=== PATIENT | female | born 1970 | race Caucasian/White ===

== ENCOUNTER → 2020-11-10 00:37 | Outpatient (CLI) | payer OTHER, SELFPAY | PROVIDERS: PCP Family Medicine; Visit Provider Internal Medicine Gastroenterology | DX: Z01.812 Encounter for preprocedural laboratory examination (principal); Z20.822 Contact with and (suspected) exposure to COVID-19 | CPT/HCPCS: C9803; U0003; U0005 ==

== ENCOUNTER 2020-11-12 08:00 | Outpatient (CLI) | payer OTHER, SELFPAY ==
[2020-11-12 13:12] LABS: EDCOVIDSCREEN Negative (Negative)
== END 2020-11-12 08:01 | disposition home or self-care (01) ==
LOC: ANHLAB 11-19 10:49
PROVIDERS: PCP Family Medicine; Visit Provider Internal Medicine Gastroenterology
DX: Z01.812 Encounter for preprocedural laboratory examination (principal); Z20.822 Contact with and (suspected) exposure to COVID-19
CPT/HCPCS: 36415; 87426; C9803

== ENCOUNTER 2020-11-13 01:20 | Day surgery (SDC) | payer OTHER, SELFPAY ==
[2020-11-05 09:47] VITALS: BMI 43.1
[2020-11-13 07:14] VITALS: BMI 43.2
[2020-11-13 07:38] VITALS: BP 132/77; PULSE 106; RESP 18; TEMP 36.4; O2SAT 99
[2020-11-13] MEDS: LACTATED RINGERS 1,000 ML 150 ML IV CONT (07:40)
--- NOTE | 2020-11-13 07:59 | P.PNAN_ITS ---
Anes - Initial Pre Proc Eval Procedure: Operation Date: 11/13/20 08:30 Proposed Procedures p Esophagogastroduodenoscopy - Nazario Nogueira MD Date/Time: 11/13/20 07:59 Surgeon: Nazario Nogueira MD Pre Op Diagnosis: dysphagia Patient Data Age: 49 Gender: F Height: 1.57 m Weight: 107.4 kg Last Vital Signs Temp 36.4 C 11/13/20 07:38 Pulse 106 H 11/13/20 07:38 Resp 18 11/13/20 07:38 BP 132/77 11/13/20 07:38 Pulse Ox 99 11/13/20 07:38 Allergies Allergy/AdvReac Type Severity Reaction Status Date / Time No Known Allergies Allergy Verified 11/13/20 07:11 Home Medications Medication Instructions Recorded Confirmed Type alprazolam 1 mg PO TID 11/05/20 11/13/20 History budesonide-formoterol [Symbicort] 2 puff INHALATION BID 11/05/20 11/13/20 History clotrimazole 1 applic TOPICAL BID 11/05/20 11/13/20 History cyclobenzaprine 10 mg PO TID PRN 11/05/20 11/13/20 History doxycycline hyclate 100 mg PO BID 11/05/20 11/13/20 History ergocalciferol (vitamin D2) 50,000 unit PO WEEKLY 11/05/20 11/13/20 History gabapentin 300 mg PO TID 11/05/20 11/13/20 History gabapentin 600 mg PO TID 11/05/20 11/13/20 History glimepiride 4 mg PO BID 11/05/20 11/13/20 History ipratropium-albuterol 3 ml INHALATION BID 11/05/20 11/13/20 History metformin 500 mg PO BID 11/05/20 11/13/20 History pantoprazole 40 mg PO DAILY 11/05/20 11/13/20 History sumatriptan succinate 100 mg PO PRN PRN 11/05/20 11/13/20 History tiotropium-olodaterol [Stiolto 2 puff INHALATION BID 11/05/20 11/13/20 History Respimat] tramadol 50 mg PO Q6H PRN 06/16/21 06/24/21 History zolpidem 5 mg PO HS 11/05/20 11/13/20 History Laboratory Tests 11/12/20 12:29 SARS-CoV-2 IgG/IgM Ag?Rapid Negative (Negative) Patient hx anesthesia problems: none Family hx anesthesia problems: none [facility] Past Medical History Medical History (Updated 11/13/20 @ 08:00 by Nolan Rodriguez MD) Chronic pain COPD (chronic obstructive pulmonary disease) Diabetes Morbid obesity Social History Social History Smoking packs per day: 1 Smoking cigarettes per day: 20.0 Years smoked: 20 Smoking pack-years: 20.00 Smoking status: Current every day smoker Tobacco type: cigarettes Additional smoking assessment comments: SMOKES 3 CIGS A DAY NOW Alcohol intake: never Substance use: never Substance use type: does not use Living arrangements: with family Spiritual care concerns: No Anes - Eval Final PreProcedure Day of Procedure 11/13/20 07:59 Patient weight: morbidly obese Heart: regular rate and rhythm Lungs: clear to auscultation Airway: Mallampati scale class II Neurological: alert and oriented Last oral intake: >/= 8 hours ASA classification: IV Emergent: no Anesthetic plan: proceed Anesthesia type and monitoring: general GIVS and standard monitoring Informed Consent: The patient's anesthetic plan and its attendant risks and benefits were discussed with the patient/family/POA. Questions were solicited and answers provided to the satisfaction of the patient/family/POA.
--- NOTE | 2020-11-13 08:28 | PM.HPGS ---
History of Present Illness History of Present Illness Consent: Risks, benefits, and alternatives have been discussed and questions answered. Patient agrees to proceed with procedure. Chief complaint: dysphagia Narrative: Christie Garcia is a 49 year old female who has had difficulty swallowing for the past few months. She states she has had acid reflux problems for 15 years, for which she takes pantoprazole. He recently she feels as though she chokes with things like pills, food, and even water getting caught in her throat. Rarely she will fill of something get caught in the substernal area, but most the time it seems that it does not get past her throat. She has not lost weight in the fact is gaining weight. Review of Systems Review of Systems: All systems reviewed & are unremarkable except as noted in HPI and below PMFSH Past Medical History Medical History Chronic pain COPD (chronic obstructive pulmonary disease) Diabetes Morbid obesity Social History Social History Smoking packs per day: 1 Smoking cigarettes per day: 20.0 Years smoked: 20 Smoking pack-years: 20.00 Smoking status: Current every day smoker Tobacco type: cigarettes Additional smoking assessment comments: SMOKES 3 CIGS A DAY NOW Alcohol intake: never Substance use: never Substance use type: does not use Living arrangements: with family Spiritual care concerns: No Meds Home Medications and Allergies Home Medications Medication Instructions Recorded Confirmed Type alprazolam 1 mg PO TID 11/05/20 11/13/20 History budesonide-formoterol [Symbicort] 2 puff INHALATION BID 11/05/20 11/13/20 History clotrimazole 1 applic TOPICAL BID 11/05/20 11/13/20 History cyclobenzaprine 10 mg PO TID PRN 11/05/20 11/13/20 History doxycycline hyclate 100 mg PO BID 11/05/20 11/13/20 History ergocalciferol (vitamin D2) 50,000 unit PO WEEKLY 11/05/20 11/13/20 History gabapentin 300 mg PO TID 11/05/20 11/13/20 History gabapentin 600 mg PO TID 11/05/20 11/13/20 History glimepiride 4 mg PO BID 11/05/20 11/13/20 History ipratropium-albuterol 3 ml INHALATION BID 11/05/20 11/13/20 History metformin 500 mg PO BID 11/05/20 11/13/20 History pantoprazole 40 mg PO DAILY 11/05/20 11/13/20 History sumatriptan succinate 100 mg PO PRN PRN 11/05/20 11/13/20 History tiotropium-olodaterol [Stiolto 2 puff INHALATION BID 11/05/20 11/13/20 History Respimat] tramadol 50 mg PO Q6H PRN 11/05/20 11/13/20 History zolpidem 5 mg PO HS 11/05/20 11/13/20 History Allergies Allergy/AdvReac Type Severity Reaction Status Date / Time No Known Allergies Allergy Verified 11/13/20 07:11 Vital Signs Vital Signs - 24 hr 11/13/20 07:38 Temperature 36.4 C Pulse Rate 106 H Respiratory Rate 18 Blood Pressure 132/77 Pulse Oximetry 99 Exam Resp: Auscultation: clear to auscultation bilaterally Cardio: Rate: regular rate Rhythm: regular rhythm GI: GI Palp: Yes Soft to palpation and No Tenderness to palpation present (GI) Assessment and Plan Assessment and plan (1) Dysphagia: Code(s): R13.10 - Dysphagia, unspecified Status: Acute Assessment and Plan: EGD with possible biopsy or dilatation or cautery.
[2020-11-13] MEDS: BENZOCAINE (*SP) 60 ML SPRAY CAN (HURRICAINE) 1 SPRAY MUCOUS MEM (08:46)
[2020-11-13 09:03] VITALS: BP 108/63; PULSE 98; RESP 22; O2SAT 95
[2020-11-13 09:13] VITALS: BP 117/73; PULSE 97; RESP 21; O2SAT 95
[2020-11-13 09:23] VITALS: BP 127/75; PULSE 97; RESP 18; O2SAT 96
[2020-11-13 09:29] VITALS: BP 124/68; PULSE 98; RESP 20; O2SAT 96
[2020-11-13 10:46] LABS: Glucose Point of Care 205 mg/dl (65-105)
== END 2020-11-13 09:53 | disposition home or self-care (01) ==
PROVIDERS: PCP Family Medicine; Visit Provider Internal Medicine Gastroenterology
PROC: 0DJ08ZZ Inspection of Upper Intestinal Tract, Via Natural or Artificial Opening Endoscopic (ICD-10-PCS; CPT 43235; principal; 2020-11-13 08:30)
DX: K22.70 Barrett's esophagus without dysplasia (principal); K21.00 Gastro-esophageal reflux disease with esophagitis, without bleeding; R13.10 Dysphagia, unspecified; Z79.51 Long term (current) use of inhaled steroids; Z79.84 Long term (current) use of oral hypoglycemic drugs; J44.9 Chronic obstructive pulmonary disease, unspecified; E11.9 Type 2 diabetes mellitus without complications; G89.29 Other chronic pain; E66.01 Morbid (severe) obesity due to excess calories; Z68.41 Body mass index [BMI] 40.0-44.9, adult; F17.210 Nicotine dependence, cigarettes, uncomplicated
CPT/HCPCS: 43239; 36415; 82948; 87426; 88305; 88313; C9803; J7120

== ENCOUNTER 2021-03-26 07:28 | Outpatient (CLI) | payer OTHER, SELFPAY ==
--- NOTE | ~2021-03-26 | CT_ITS ---
EXAMINATION: CT sinus wo con DATE: 03/26/2021 07:57 INDICATION: Chronic sinusitis TECHNIQUE: Computed tomography (CT) of the paranasal sinuses was performed without intravenous contra st. The dose-length product (DLP) was 294.13 mGy-cm. Iterative reconstruction was used. COMPARISON: 04/28/2012 FINDINGS: There is normal development and pneumatization of the paranasal sinuses. The frontal, sphen oid, ethmoid, and maxillary sinuses are clear. The bilateral ostiomeatal complexes are patent. Visual ized soft tissues are unremarkable. There are 4 mm of rightward deviation of the nasal septum. IMPRESSION: 1. Unremarkable paranasal sinuses. Reviewed, dictated and finalized at location B.
== END 2021-03-26 07:29 | disposition home or self-care (01) ==
PROVIDERS: PCP Family Medicine; Visit Provider Otolaryngology
DX: J32.9 Chronic sinusitis, unspecified (principal)
CPT/HCPCS: 70486

== ENCOUNTER 2021-03-27 13:34 | Outpatient (CLI) | payer OTHER, SELFPAY ==
--- NOTE | 2021-03-27 | ECHO_ITS ---
Patient Info Name: Christie Garcia Age: 50 years : 1970 Gender: Female Ht: 62 in Wt: 240 lbs BSA: 2.25 m2 HR: 77 bpm BP: 129 / 81 mmHg Technical Quality: Good Exam Date: 03/27/2021 2:07 PM Exam Location: [facility] Patient Status: Outpatient Admit Date: 03/27/2021 Staff Ordering Physician: Vin, Aida FALL Movement Therapist: Rashmi Singh RDCS Attending Provider: Vin, Aida FALL Exam Type: CA echo doppler color flow Study Info Indications R06.09 - Other forms of dyspnea Complete two-dimensional, color flow and Doppler transthoracic echocardiogram is performed. Summary 1. Complete two-dimensional, color flow and Doppler transthoracic echocardiogram is performed. 2. Left ventricular chamber dimension is normal. 3. Left ventricular systolic function is normal, estimated at 60-65%. 4. There is mildly increased left ventricular wall thickness. 5. The left ventricular diastolic function is grade I diastolic dysfunction. 6. E/e' 10 is mildly elevated. 7. Global longitudinal strain is abnormal at -14.9%. 8. No pulmonary hypertension, estimated pulmonary arterial systolic pressure is 13 mmHg. Left Ventricle E/e' 10 is mildly elevated. Global longitudinal strain is abnormal at -14.9%. Left ventricular chamber dimension is normal. Left ventricular systolic function is normal, estimated at 60-65%. There is mildly increased left ventricular wall thickness. The left ventricular diastolic function is grade I diastolic dysfunction. Right Ventricle Right ventricular chamber dimension is normal. Right ventricular systolic function is normal. Left Atria Left atrial chamber dimension is normal. Right Atria Right atrial chamber dimension is normal. Aortic Valve The aortic valve is trileaflet. There is no aortic valve stenosis. There is no aortic valve regurgitation. Pulmonic Valve There is no pulmonic regurgitation. Mitral Valve There is no mitral valve stenosis. There is no mitral valve regurgitation. Tricuspid Valve There is no tricuspid valve regurgitation. No pulmonary hypertension, estimated pulmonary arterial systolic pressure is 13 mmHg. Pericardium/Pleural There is no pericardial effusion. Inferior Vena Cava Normal inferior vena cava with >50% collapse upon inspiration consistent with normal right atrial pressure, 5 mmHg. Aorta The aortic root size at the sinus of Valsalva is normal. Left Ventricular Outflow Tract Name Value Normal LVOT 2D LVOT Diameter 1.9 cm LVOT Doppler LVOT Peak Gradient 8 mmHg LVOT Mean Gradient 4 mmHg LVOT VTI 23 cm LVOT VTI/AV VTI Ratio 0.9 LVOT Stroke Volume 65 ml LVOT CO 6.5 l/min LVOT CI 2.9 l/min/m2 Pulmonic Valve Name Value Normal
--- NOTE | 2021-03-30 10:03 | WPDPFTINT ---
PFT Procedure Performed PFT Procedure Performed Spirometry with Pre/Post Bronchodilator Plethysmography (Lung Vol) Flow Vol Loop PFT Interpretation Lung volumes were measured with the body plethysmography method. The diminished expiratory reserve volume is related to obesity. The remaining lung volumes are unremarkable. Spirometry showed diminished expiratory flow rates and a normal FEV1 to FVC ratio of 82%. Following administration of a bronchodilator there was significant increase in the expiratory flow rates. The diminished expiratory flow rates in the face of a normal FEV1 to FVC ratio of 82% and a normal total lung capacity is indicative of a nonspecific pattern. The significant response to bronchodilators may be due to underlying obstructive airway disease. Clinical correlation advised. The post bronchodilator flow volume loop is consistent with suboptimal effort. Impression: Nonspecific pattern. Significant response to bronchodilator may indicate underlying obstructive airway disease. Clinical correlation advised.
--- NOTE | 2021-03-30 10:08 | WPDSIXMINUTE ---
Six Minute Walk Procedure Procedure Performed Pulmonary Stress Test (6 min walk) Six Minute Walk This 6 minute walk test was carried out with the patient breathing ambient air. The pre walk oxyhemoglobin saturation was 94%. The pre walk perceived dyspnea was 4 on the Azeb scale. The patient walked only 76 m with no stops during testing. The patient's performance was limited by dyspnea and pain in right leg. During the walk the perceived dyspnea was again about 4 on the Azeb scale. During this limited testing the oxyhemoglobin saturation remained over 93%. Impression: No oxyhemoglobin desaturation during this limited testing.
== END 2021-03-27 13:35 | disposition home or self-care (01) ==
LOC: ANHCARD 13:44
PROVIDERS: PCP Family Medicine; Visit Provider Nurse Practitioner
DX: J44.9 Chronic obstructive pulmonary disease, unspecified (principal); R06.09 Other forms of dyspnea
CPT/HCPCS: 93306; 94060; 94618; 94726

== ENCOUNTER 2021-04-20 08:49 | Outpatient (CLI) | payer OTHER, SELFPAY ==
--- NOTE | ~2021-04-20 | CT_ITS ---
EXAMINATION: CT sinus wo con DATE: 04/20/2021 09:10 INDICATION: Chronic sinusitis TECHNIQUE: Computed tomography (CT) of the paranasal sinuses was performed without intravenous contra st. The dose-length product was 282.50 mGy-cm. Automated exposure control and iterative reconstructio n technique were employed. COMPARISON: CT dated 03/26/2021 FINDINGS: There is no significant mucosal thickening or air-fluid level. No mucoperiosteal reaction. There is rightward nasal septal deviation. Ostiomeatal units are patent bilaterally. Mastoids are pne umatized. IMPRESSION: 1. No significant sinus disease. Reviewed, dictated and finalized at location B. TERER JOURNEYMAN
== END 2021-04-20 08:50 | disposition home or self-care (01) ==
LOC: ANHIMG 08:53
PROVIDERS: PCP Family Medicine; Visit Provider Otolaryngology
DX: J32.9 Chronic sinusitis, unspecified (principal)
CPT/HCPCS: 70486

== ENCOUNTER 2021-06-05 08:04 | Outpatient (CLI) | payer OTHER, SELFPAY ==
--- NOTE | ~2021-06-05 | XR_ITS ---
EXAMINATION: XR barium swallow modified EXAM DATE: 06/05/2021 09:12 INDICATION: R13.10 - Dysphagia, unspecified . TECHNIQUE: Modified barium esophagram was performed by speech pathologist with radiologist Dr. Miah William present to administered fluoroscopy. Speech pathologist administered barium in varying consis tencies as per speech pathologist documentation. This was recorded on tape. There was total fluorosc opic time of 1.7 minutes. The DAP for this procedure was 1.7 Gycm2. A total of 2 images sent to PAC S from the exam. FINDINGS: Oral stage: Adequate function. Pharyngeal phase: Reduced laryngeal elevation. Laryngeal penetration: Demonstrated. Aspiration: Trace. Laryngeal sensitivity: Inconsistent, cued to cough. IMPRESSION: Please refer to speech pathologist findings and specific feeding recommendations. Reviewed, dictated and finalized at location A. ENGINE MECHANIC IMPRESSION: Please refer to speech pathologist findings and specific feeding r ecommendations.
--- NOTE | 2021-06-05 10:16 | STOPEVAL ---
MODIFIED BARIUM SWALLOW EVALUATION: Thank you for referring Christie Garcia to [facility].? Attending Provider: Nazario Nogueira MD Fax #: [phone] Outpatient Past Medical History Past Medical History Source of Past Medical History Patient Neurological History Hx Other Neurological Disorders Yes: pt reports having to see a neurologist for neuropathy Cardiovascular History Hx Cardiac Disorders No Significant History Respiratory History Hx Bronchitis Yes Hx Chronic Obstructive Pulmonary Disease Yes (COPD) Gastrointestinal History Hx Cholecystectomy Yes: 2016 Hx Gastroesophageal Reflux Disease Yes: on meds Hx Polyps Yes Genitourinary History Hx Genitourinary Disorders No Significant History Musculoskeletal History Hx Orthopedic Surgery Yes: CARPAL TUNNEL R-HAND Hx Other Musculoskeletal Disorders Yes: CARPAL TUNNEL L-HAND NO SURG. 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 Integumentary History Hx Shingles Yes: AT 6 YEARS OLD Hx Other Skin Disorders Yes: SKIN BREAKOUT ON BACK- UNSURE WHAT IT IS, TX WITH CREAM Reproductive History Hx Endometriosis Yes Psychosocial History Hx Anxiety Yes Hx Depression Yes Pain History Has Past Pain Affected Your Daily Life Yes: BILATERAL KNEES DOWN TO FEET-SWELL, HIPS AND BACK Effective Methods of Pain Control TRAMADOL- HAD EPIDURALS TO RELIEVE BACK PAIN PRIOR TO PANDEMIC Anesthesia History Hx Anesthesia Reactions No Significant History Other History Hx Other Surgeries Yes: CYST REMOVED FROM COCCYX Evaluation Information Problem Diagnosis dysphagia Onset 2 years Subjective Information I choke and I lose my voice; Query Text:As Reported By Patient/ sometimes when I choke it Family comes out my nose Modified Barium Swallow Evaluation Recent Swallowing History Reports Dysphagia Yes Duration of Dysphagia pt reports that choking occurs all the time History of Pneumonia No Reported Difficult Consistencies Unable to Identify Intake Method Prior to Swallow Oral Evaluation Diet Prior to Swallow Evaluation Regular, Level 7 Liquid Consistency Prior to Swallow Thin (0) Evaluation Orthodontic/Dental Appliances Full Dentures, Lower,Full
== END 2021-06-05 08:05 | disposition home or self-care (01) ==
LOC: ANHIMG 08:08
PROVIDERS: PCP Family Medicine; Visit Provider Internal Medicine Gastroenterology
DX: R13.10 Dysphagia, unspecified (principal)
CPT/HCPCS: 92611

== ENCOUNTER 2021-06-18 07:41 | Outpatient (CLI) | payer OTHER, SELFPAY ==
--- NOTE | 2021-06-18 22:22 | WPDMETH ---
Methacholine Procedure Perform Procedure Performed Methacholine Challenge Methacholine Challenge Methacholine Challenge: DOS: 06/18/2021 REQUESTING: EUFEMIA Talamantes REASON FOR TESTING: Asthma METHACHOLINE CHALLENGE This test was conducted per ATS guidelines. A previous study on 03/27/2021 showed spirometry with an FEV1 70% predicted, good response to bronchodilator 23% increased in FEV1. The patient was exposed to sequentially increasing doses of methacholine in the usual manner. Baseline measurement with saline Level 1 - 0.025 mg Level 2 - 0.25 mg Level 3 - 2.5 mg Level 4 - 10 mg Level 5 - 25 mg The test was completed through the entire sequence of dilutions without a significant drop in flows. A decrease of 20% in the FEV1 is a positive result, and she did not have a drop of 20%. Flows returned to normal after bronchodilator was administered. IMPRESSION: This is a negative methacholine challenge without a significant drop in flows after increasing doses of methacholine. The best use for a methacholine challenge is to rule out asthma. Clinical correlation is advised. Cammie Lopez MD
== END 2021-06-18 07:42 | disposition home or self-care (01) ==
LOC: ANHPFT 07:42
PROVIDERS: PCP Family Medicine; Visit Provider Nurse Practitioner
DX: J45.909 Unspecified asthma, uncomplicated (principal)
CPT/HCPCS: 94070; J7674

== ENCOUNTER 2021-09-28 10:42 | Inpatient (IN) | payer OTHER, SELFPAY ==
[2021-09-28] VITALS (22 sets, daily range): BP systolic 113–139; BP diastolic 63–77; PULSE 96–111; RESP 18–20; TEMP 36.8–37.1; O2SAT 95–100
--- NOTE | ~2021-09-28 | XR_ITS ---
XR chest 2V DATE: 09/28/2021 12:45 INDICATION: Wheezing, increased cough. Bilateral leg swelling for years. TECHNIQUE: AP and lateral views COMPARISON: 11/04/2016 PA and lateral chest FINDINGS: Normal heart size. No hilar or mediastinal enlargement. No pulmonary infiltrate or consolid ation, pleural effusion or pulmonary vascular congestion or pneumothorax. IMPRESSION: No active cardiopulmonary disease Reviewed, dictated and finalized at location B.
--- NOTE | ~2021-09-28 | US_ITS ---
EXAMINATION: US venous doppler LE RT DATE: 09/28/2021 13:04 INDICATION: Erythema and pain TECHNIQUE: Grayscale ultrasound images without and with compression and Doppler ultrasound images of the right lower extremity veins were obtained. COMPARISON: None. FINDINGS: The visualized portions of right common femoral vein, profunda (deep) femoral vein, femoral vein, pop liteal vein, peroneal trunk, posterior tibial veins, peroneal veins, gastrocnemius vein and greater s aphenous vein outflow are patent. IMPRESSION: 1. No deep venous thrombosis in the right lower limb. Reviewed, dictated and finalized at location A.
--- NOTE | 2021-09-28 12:14 | ECG_ITS ---
Measurements Intervals [place] Rate: 97 P: 48 GA: 123 QRS: 32 QRSD: 87 T: 43 QT: 379 QTc: 483 Interpretive Statements SINUS RHYTHM NONSPECIFIC ST & T-WAVE ABNORMALITY- DIFFUSE LEADS BASELINE ARTIFACT- I, III, AVR, AVL BORDERLINE ECG Electronically Signed On 09-28-2021 12:58:47 CDT by Wilbert Mack D.O.
[2021-09-28] MEDS: ALBUTEROL SULFATE NEB 2.5 MG/3 ML INH 1.25 MG INHALATION (12:24)
--- NOTE | 2021-09-28 12:27 | ED.LOWEXIN ---
HPI - Extremity Injury (Lower) General Chief Complaint: Extremity Injury, Lower Stated Complaint: bilat leg swelling Time Seen by Provider: 09/28/21 12:03 History of Present Illness HPI Narrative: Patient is a 50-year-old female with a history of diabetes, COPD, [place]unas's esophagus here for evaluation of right leg pain, swelling, and redness. Patient states she has been dealing with intermittent issues in her bilateral lower extremities for a while , but her right leg has become much more swollen, red and painful over the past several days. States she has been unable to walk to the pain. Denies break in skin integrity. Denies fevers, chills. Does note some intermittent chest pain over the past several years, has chronic cough and shortness of breath secondary to COPD. She still uses tobacco daily. Related Data Home Medications Medication Instructions Recorded Confirmed Stiolto Respimat 2 puff INHALATION BID 11/05/20 09/28/21 alprazolam 1 mg PO TID 11/05/20 09/28/21 budesonide-formoterol [Symbicort] 2 puff INHALATION BID 11/05/20 09/28/21 clotrimazole 1 applic TOPICAL BID 11/05/20 09/28/21 cyclobenzaprine 10 mg PO TID PRN 11/05/20 09/28/21 ergocalciferol (vitamin D2) 50,000 unit PO WEEKLY 11/05/20 09/28/21 gabapentin 300 mg PO TID 11/05/20 09/28/21 gabapentin 600 mg PO TID 11/05/20 09/28/21 ipratropium-albuterol 3 ml INHALATION BID 11/05/20 09/28/21 metformin 1,000 mg PO BID 11/05/20 09/28/21 pantoprazole 40 mg PO BID 11/05/20 09/28/21 sumatriptan succinate 100 mg PO PRN PRN 11/05/20 09/28/21 tramadol 50 mg PO Q6H PRN 11/05/20 09/28/21 zolpidem 5 mg PO HS PRN 11/05/20 09/28/21 benzonatate 200 mg capsule 200 mg PO TID PRN 02/10/21 09/28/21 sitagliptin 100 mg tablet 100 mg PO DAILY 02/10/21 09/28/21 cephalexin 500 mg PO Q6H 09/28/21 09/28/21 loratadine 10 mg PO DAILY 09/28/21 09/28/21 montelukast 10 mg PO DAILY 09/28/21 09/28/21 Allergies Allergy/AdvReac Type Severity Reaction Status Date / Time No Known Allergies Allergy Verified 09/28/21 17:17 Review of Systems Review of Systems: Gen: Denies fevers or chills Eyes: Denies eye pain or visual change ENT: Denies congestion Respiratory: Reports chronic shortness of breath and cough. CV: Denies chest pain or palpitations GI: Denies abdominal pain nausea, emesis or diarrhea denies burning, urgency, frequency or hematuria Musculoskeletal: Reports bilateral lower extremity swelling, right over left. Denies back pain or muscle pain Neuro: Denies numbness, tingling, weakness or focal weakness Skin: Denies rash Except as documented, all other systems reviewed and negative All systems reviewed & are unremarkable except as noted in HPI and below PMFSH Past Medical History Medical History Chronic pain COPD (chronic obstructive pulmonary disease) Diabetes Morbid obesity Social History Social History Smoking packs per day: 1 Smoking cigarettes per day: 20.0 Years smoked: 20 Smoking pack-years: 20.00 Smoking status: Current every day smoker Tobacco type: cigarettes Additional smoking assessment comments: SMOKES 3 CIGS A DAY NOW Alcohol intake: never Substance use: never Substance use type: does not use Spiritual care concerns: No Exam Narrative: APPEARANCE: Chronically ill appearing Head: normocephalic and atraumatic. EYES: PERRLA/EOMI, conjunctivae clear NOSE: No nasal drainage EARS: External ear normal in appearance THROAT: Oropharynx is clear. Mucous membranes are moist. NECK: Supple. No adenopathy, no masses. RESPIRATORY: Diffuse expiratory wheezes throughout lung pearce. Airway patent, respirations nonlabored. CARDIOVASCULAR: Doppler signals heard on DP and PT pulses bilaterally. Regular rate and rhythm without murmurs, rubs, or gallops. ABDOMINAL: Normoactive bowel sounds. Soft, nontender, nondistended. No rebound tenderness o
[2021-09-28 12:35] LABS: Basophils Percent Auto 0.2 % (0.2-1.2); Eosinophils Percent Auto 0.8 % (0-4.4); Hematocrit 33.3 % (37.0-47.0); Hemoglobin 10.9 g/dL (12.0-15.0); Immature Granulocyte Absolute 0.02 K/mm3 (0.00-0.031); Immature Granulocyte Percent A 0.4 % (0-0.5); Lymphocytes Absolute Auto 2.11 K/mm3 (0.9-3.2); Mean Corpuscular HGB Conc 32.7 g/dl (32-36); Mean Corpuscular Hemoglobin 32.7 pg (26-34); Monocytes Absolute Auto 0.3 K/mm3 (0.1-0.6); Monocytes Percent Auto 7.1 % (2.6-8.5); Neutrophils Absolute Auto 2.3 K/mm3 (1.3-6.7); Neutrophils Percent Auto 47.5 % (45.5-73.1); Platelet Count Result 130 k/mm3 (150-375); Red Blood Count 3.33 M/mm3 (4.2-5.4); Red Cell Distribution Width 14.8 % (11.5-14.5); White Blood Count 4.8 K/mm3 (4.5-10.0)
[2021-09-28 12:45] LABS: Alanine Aminotransferase 27 U/L (6-35); Albumin Level 2.8 g/dL (3.5-5.1); Alkaline Phosphatase 83 U/L (38-126); Anion Gap 7 mmol/L (8-16); Aspartate Amino Transferase 62 U/L (14-36); Bilirubin,Total 1.5 mg/dL (0.2-1.3); Blood Urea Nitrogen 5 mg/dL (7-17); Calcium 7.4 mg/dL (8.4-10.2); Carbon Dioxide 24 mmol/L (22-30); Chloride 106 mmol/L (98-107); Estimated CRCL calculation 128 ml/min; Estimated Glomerular Filt Rate > 60; Glucose 86 mg/dL (65-110); Potassium 2.9 mmol/L (3.4-5.0); Sodium 137 mmol/L (137-145)
[2021-09-28 12:57] LABS: NT Pro B Type Natriuretic Pept 140 pg/mL (5-100); Troponin I < 0.012 ng/mL (0.000-0.034)
[2021-09-28 15:30] LABS: Lactic Acid Reflex 2.7 mmol/L (0.7-2.0)
--- NOTE | 2021-09-28 17:10 | ADMGEN ---
This patient, Christie Garcia, was admitted to Medical Room 349-01. Patient/family oriented to hospital policies and general routines including ID bracelet, bed and alarms, visiting hours, pain management, procedures, bathroom and other care routines, personal items, smoking policy, room service/diet, and visiting hours. Information on how to activate the Rapid Response Team has been discussed. Patient/Family are encouraged to report perceived risks to care and to ask questions if they do not understand what they are told or what they should do.
[2021-09-28 17:17] LABS: Glucose Point of Care 100 mg/dl (65-105)
[2021-09-28 18:18] LABS: Reflex Lactic Acid Yes or No Add Lactic
[2021-09-28] MEDS: POTASSIUM CHLORIDE 20 MEQ TABLET 40 MEQ PO (18:47)
[2021-09-28 18:57] LABS: Lactic Acid 2.9 mmol/L (0.7-2.0)
--- NOTE | 2021-09-28 20:49 | PM.IMHP ---
H&P: HPI History of Present Illness Date/Time: Patient was placed observation status for expected length of stay less than 23 hours for management, will plan to re-evaluate tomorrow for improvement. 09/28/21 20:49 Chief Complaint: Lower extremity pain and swelling Narrative: Ms. Garcia is a 1-year-old female who presented to the emergency room with complaints of increasing erythema, swelling, and pain to her right lower extremity. Patient states that she noticed redness to her right foot approximately 2 weeks ago and has progressively gotten worse. Patient states that she was placed on antibiotics 1 week ago for some pustules on her back and she finished a full 7 day course. Patient states she was taking Keflex 500 mg since every 6 hours. Patient denies any fever or chills at home. Patient states that she has been monitoring her blood glucose level at home and has been running close to 100. Patient states she did recently have adjustment of her medications. Patient denies any chest pain, shortness a breath, lightheadedness, dizziness, syncopal, or near syncopal episodes. Patient states she had been taking [id number] medication for the pain in her right lower extremity, but last night it was quite painful and she did not sleep very well so decided to come to the hospital. Patient states she has had an episode of cellulitis to her lower extremities in the past and has been treated as an outpatient. Patient states he has a known history of diabetes mellitus, hypertension, and COPD. Patient states she is cutting back on cigarette smoking and she is down to 1 cigarette a day. Review of Systems Review of Systems: A 12 point review of systems was completed patient all pertinent positive and negative per HPI the remainder are unremarkable. FOR[facility]LY [facility] Past Medical History Medical History (Updated 09/28/21 @ 20:55 by Marianne Guzman APRN) Chronic pain COPD (chronic obstructive pulmonary disease) Diabetes Hypertension Morbid obesity Social History Social History Smoking packs per day: 1 Smoking cigarettes per day: 20.0 Years smoked: 20 Smoking pack-years: 20.00 Smoking status: Current every day smoker Tobacco type: cigarettes Additional smoking assessment comments: SMOKES 3 CIGS A DAY NOW Alcohol intake: never Substance use: never Substance use type: does not use Spiritual care concerns: No Meds Home Medications and Allergies Home Medications Medication Instructions Recorded Confirmed Type Stiolto Respimat 2 puff INHALATION BID 11/05/20 09/28/21 History alprazolam 1 mg PO TID 11/05/20 09/28/21 History budesonide-formoterol [Symbicort] 2 puff INHALATION BID 11/05/20 09/28/21 History clotrimazole 1 applic TOPICAL BID 11/05/20 09/28/21 History cyclobenzaprine 10 mg PO TID PRN 11/05/20 09/28/21 History ergocalciferol (vitamin D2) 50,000 unit PO WEEKLY 11/05/20 09/28/21 History gabapentin 300 mg PO TID 11/05/20 09/28/21 History gabapentin 600 mg PO TID 11/05/20 09/28/21 History ipratropium-albuterol 3 ml INHALATION BID 11/05/20 09/28/21 History metformin 1,000 mg PO BID 11/05/20 09/28/21 History pantoprazole 40 mg PO BID 11/05/20 09/28/21 History sumatriptan succinate 100 mg PO PRN PRN 11/05/20 09/28/21 History tramadol 50 mg PO Q6H PRN 11/05/20 09/28/21 History zolpidem 5 mg PO HS PRN 11/05/20 09/28/21 History benzonatate 200 mg capsule 200 mg PO TID PRN 02/10/21 09/28/21 History sitagliptin 100 mg tablet 100 mg PO DAILY 02/10/21 09/28/21 History cephalexin 500 mg PO Q6H 09/28/21 09/28/21 History loratadine 10 mg PO DAILY 09/28/21 09/28/21 History montelukast 10 mg PO DAILY 09/28/21 09/28/21 History Allergies Allergy/AdvReac Type Severity Reaction Status Date / Time No Known Allergies Allergy Verified 09/28/21 17:17 Vital Signs Vital Signs - 24 hr 09/28/21 10:46 09/28/21 12:00 09/28/21 12:24 Temperature 36.8 C Pulse Rate 111 H 98 Respi
[2021-09-28 21:50] LABS: Glucose Point of Care 127 mg/dl (65-105)
[2021-09-29] VITALS (8 sets, daily range): BP systolic 111–137; BP diastolic 63–79; PULSE 84–116; RESP 12–18; TEMP 36.3–37.1; O2SAT 94–100
[2021-09-29 06:29] LABS: Basophils Percent Auto 0.3 % (0.2-1.2); Eosinophils Percent Auto 0.6 % (0-4.4); Immature Granulocyte Absolute 0.01 K/mm3 (0.00-0.031); Immature Granulocyte Percent A 0.3 % (0-0.5); Lymphocytes Absolute Auto 1.51 K/mm3 (0.9-3.2); Mean Corpuscular HGB Conc 32.3 g/dl (32-36); Mean Corpuscular Hemoglobin 32.5 pg (26-34); Mean Corpuscular Volume 100.6 fl (80-100); Mean Platelet Volume 8.6 fl (7.4-10.4); Monocytes Absolute Auto 0.2 K/mm3 (0.1-0.6); Monocytes Percent Auto 6.7 % (2.6-8.5); Neutrophils Absolute Auto 1.7 K/mm3 (1.3-6.7); Neutrophils Percent Auto 48.1 % (45.5-73.1); Platelet Count Result 114 k/mm3 (150-375); Red Blood Count 3.08 M/mm3 (4.2-5.4); Red Cell Distribution Width 14.9 % (11.5-14.5); White Blood Count 3.4 K/mm3 (4.5-10.0)
[2021-09-29 06:50] LABS: Anion Gap 7 mmol/L (8-16); Blood Urea Nitrogen 5 mg/dL (7-17); Calcium 7.2 mg/dL (8.4-10.2); Carbon Dioxide 24 mmol/L (22-30); Chloride 105 mmol/L (98-107); Estimated CRCL calculation 128 ml/min; Estimated Glomerular Filt Rate > 60; Glucose 128 mg/dL (65-110); Magnesium 1.5 mg/dL (1.6-2.3); Potassium 3.3 mmol/L (3.4-5.0); Sodium 136 mmol/L (137-145)
[2021-09-29 08:01] LABS: Glucose Point of Care 112 mg/dl (65-105)
[2021-09-29] MEDS: ALPRAZolam (*CRX) 0.5 MG TABLET 1 MG PO ×3 (08:09→18:16)
[2021-09-29] MEDS: MONTELUKAST SODIUM 10 MG TABLET PO (08:09)
[2021-09-29] MEDS: ENOXAPARIN 40 MG/0.4 ML SYRINGE SUB-Q (08:10)
[2021-09-29] MEDS: LORATADINE 10 MG TABLET PO (08:10)
[2021-09-29] MEDS: GABAPENTIN 300 MG CAPSULE 900 MG PO ×3 (08:10→18:16)
[2021-09-29] MEDS: PANTOPRAZOLE 40 MG TABLET PO ×2 (08:10→18:17)
[2021-09-29] MEDS: UMECLIDINIUM/VILANTEROL 62.5-25 MCG ELLIPTA 1 PUFF INHALATION (08:38)
[2021-09-29] MEDS: IPRATROPIUM BR 0.02% INH SOLN 0.5 MG/2.5 ML VIAL INHALATION ×2 (08:48→20:18)
[2021-09-29] MEDS: ALBUTEROL SULFATE NEB 2.5 MG/3 ML INH INHALATION ×2 (08:49→20:18)
[2021-09-29 11:48] LABS: Glucose Point of Care 198 mg/dl (65-105)
[2021-09-29] MEDS: traMADol HCL (*CRX) 50 MG TABLET PO ×2 (13:01→21:13)
--- NOTE | 2021-09-29 13:43 | PM.IMPN ---
Progress Note: A&P Assessment and Plan (1) Cellulitis: Qualifiers: Laterality: right Site of cellulitis: extremity Site of cellulitis of extremity: lower extremity Qualified Code(s): L03.115 - Cellulitis of right lower limb Code(s): L03.90 - Cellulitis, unspecified Status: Acute Assessment and Plan: Continue iv vancomycin add lomotrin/ lamisil for athletes foot (2) Diabetes: Code(s): E11.9 - Type 2 diabetes mellitus without complications Status: Inactive Assessment and Plan: AccuCheck, SSI. (3) Hypertension: Code(s): I10 - Essential (primary) hypertension Status: Acute Assessment and Plan: continue to monitor Bps Subjective Date/time seen: 09/29/21 13:43 Review of Systems Review of Systems: All systems reviewed & are unremarkable except as noted in HPI and below Exam Narrative: Constitutional: Patient is well-nourished in no acute distress. Lungs: Patient has expiratory wheeze noted. Cardiovascular: Apical pulse is regular rate and rhythm. S1-S2 noted, no S3 or S4 noted. No gallops, murmurs, or rubs noted. Abdomen: Soft, round, and nontender. No palpable masses. Extremities: Patient does have edema to right lower extremity, both feet with Athletes foot. Psychiatric: Cooperative, appropriate mood, and affect Objective Data Vital Signs Vital Signs: Vital Signs - 24 hr 09/28/21 13:45 09/28/21 14:34 09/28/21 15:04 Temperature Pulse Rate 103 H 103 H 102 H Respiratory Rate Blood Pressure Pulse Oximetry 96 95 09/28/21 15:15 09/28/21 15:33 09/28/21 15:45 Temperature Pulse Rate 99 101 H 103 H Respiratory Rate Blood Pressure Pulse Oximetry 09/28/21 16:00 09/28/21 16:15 09/28/21 17:35 Temperature 37.0 C Pulse Rate 103 H 102 H 107 H Respiratory Rate 20 Blood Pressure 139/74 Pulse Oximetry 100 09/28/21 21:38 09/28/21 21:41 09/29/21 05:39 Temperature 37.1 C 37.1 C Pulse Rate 106 H 105 H Respiratory Rate 18 18 Blood Pressure 138/75 111/63 Pulse Oximetry 98 94 09/29/21 08:48 09/29/21 09:02 Temperature Pulse Rate 84 86 Respiratory Rate 12 12 Blood Pressure Pulse Oximetry Intake/Output Intake/Output: Intake & Output 09/26/21 09/27/21 09/28/21 09/29/21 23:59 23:59 23:59 23:59 Intake Total 550 1080 Output Total 600 Balance 550 480 Meds/Results Medications: Active Medications Generic Name Dose Route Start Last Admin Trade Name Freq PRN Reason Stop Dose Admin Albuterol 2.5 mg 09/29/21 08:00 09/29/21 08:49 Albuterol Sulfate Neb 2.5 Mg/3 Ml Inh INHALATION 2.5 mg Q12HRT MATI Administration Alprazolam 1 mg 09/29/21 09:00 09/29/21 12:59 Alprazolam (*Crx) 0.5 Mg Tablet PO 1 mg TID MATI Administration Benzonatate 200 mg 09/28/21 20:46 Benzonatate 100 Mg Capsule PO TID PRN Cough Cyclobenzaprine HCl 10 mg 09/28/21 20:35 Cyclobenzaprine Hcl 10 Mg Tablet PO TID PRN Spasms Dextrose 12.5 gm 09/28/21 17:22 Dextrose 50% 25 Gm/50 Ml Syringe IV PUSH PRN PRN Hypoglycemia Protocol Enoxaparin Sodium 40 mg 09/29/21 09:00 09/29/21 08:10 Enoxaparin 40 Mg/0.4 Ml Syringe SUB-Q 40 mg DAILY MATI Administration Ergocalciferol 50,000 unit 10/05/21 09:00 Ergocalciferol 50,000 Unit Capsule PO Mo@0900 MATI Gabapentin 900 mg 09/29/21 09:00 09/29/21 12:59 Gabapentin 300 Mg Capsule PO 900 mg TID MATI Administration Glucagon 1 mg 09/28/21 17:22 Glucagon For Inj 1 Mg Vial IM PRN PRN Hypoglycemia Protocol Glucose 15 gm 09/28/21 17:22 Glucose Oral Gel 15 Gm Of Glucse In 37.5 Gm Tube PO PRN PRN Hypoglycemia Protocol Dextrose 1,000 mls @ 100 mls/hr 09/28/21 17:22 Dextrose 5% 1,000 Ml IVPB PRN PRN Hypoglycemia Protocol Cefepime HCl 2 gm in 50 mls @ 100 mls/hr 09/28/21 18:00 09/29/21 06:45 Maxipime 2 Gm
[2021-09-29] MEDS: BENZONATATE 100 MG CAPSULE 200 MG PO (15:21)
[2021-09-29 16:43] LABS: Glucose Point of Care 132 mg/dl (65-105)
[2021-09-29] MEDS: FLUTICASONE/SALMETEROL 45-21 MCG INHALER 1 PUFF 2 PUFF INHALATION (20:18)
[2021-09-29 20:41] LABS: Glucose Point of Care 150 mg/dl (65-105)
[2021-09-29] MEDS: NYSTATIN OINTMENT 15 GM TUBE 1 APPLIC TOPICAL (21:01)
[2021-09-29] MEDS: CYCLOBENZAPRINE HCL 10 MG TABLET PO (21:13)
[2021-09-29] MEDS: ZOLPIDEM TARTRATE (*CRX) 5 MG TABLET PO (21:13)
[2021-09-30] VITALS (8 sets, daily range): BP systolic 118–128; BP diastolic 54–93; PULSE 90–114; RESP 16–23; TEMP 36–37; O2SAT 95–100
[2021-09-30 02:55] LABS: Vancomycin Trough 6.6 ug/mL (10.0-20.0)
[2021-09-30] MEDS: traMADol HCL (*CRX) 50 MG TABLET PO ×3 (06:06→21:29)
[2021-09-30 07:43] LABS: Glucose Point of Care 130 mg/dl (65-105)
[2021-09-30] MEDS: ENOXAPARIN 40 MG/0.4 ML SYRINGE SUB-Q (08:32)
[2021-09-30] MEDS: ALPRAZolam (*CRX) 0.5 MG TABLET 1 MG PO ×3 (08:35→17:18)
[2021-09-30] MEDS: PANTOPRAZOLE 40 MG TABLET PO ×2 (08:36→18:13)
[2021-09-30] MEDS: MONTELUKAST SODIUM 10 MG TABLET PO (08:36)
[2021-09-30] MEDS: NYSTATIN OINTMENT 15 GM TUBE 1 APPLIC TOPICAL ×2 (08:36→20:57)
[2021-09-30] MEDS: GABAPENTIN 300 MG CAPSULE 900 MG PO ×3 (08:36→17:13)
[2021-09-30] MEDS: LORATADINE 10 MG TABLET PO (08:36)
[2021-09-30] MEDS: BENZONATATE 100 MG CAPSULE 200 MG PO ×2 (08:37→15:24)
[2021-09-30] MEDS: FLUTICASONE/SALMETEROL 45-21 MCG INHALER 1 PUFF 2 PUFF INHALATION ×2 (09:00→21:51)
[2021-09-30] MEDS: UMECLIDINIUM/VILANTEROL 62.5-25 MCG ELLIPTA 1 PUFF INHALATION (09:00)
[2021-09-30] MEDS: IPRATROPIUM BR 0.02% INH SOLN 0.5 MG/2.5 ML VIAL INHALATION ×2 (09:00→21:50)
[2021-09-30] MEDS: ALBUTEROL SULFATE NEB 2.5 MG/3 ML INH INHALATION ×2 (09:18→21:50)
[2021-09-30 11:50] LABS: Glucose Point of Care 140 mg/dl (65-105)
--- NOTE | 2021-09-30 12:26 | PM.IMPN ---
Progress Note: A&P Assessment and Plan (1) Cellulitis: Qualifiers: Laterality: right Site of cellulitis: extremity Site of cellulitis of extremity: lower extremity Qualified Code(s): L03.115 - Cellulitis of right lower limb Code(s): L03.90 - Cellulitis, unspecified Status: Acute Assessment and Plan: Continue iv vancomycin and cefepime day 2 add nystatin cream for athletes foot continue Iv abx for 1-2 more days (2) Diabetes: Code(s): E11.9 - Type 2 diabetes mellitus without complications Status: Inactive Assessment and Plan: AccuCheck, SSI. Sugars at 128 (3) Hypertension: Code(s): I10 - Essential (primary) hypertension Status: Acute Assessment and Plan: continue to monitor Bps currently 121/54 Subjective Date/time seen: 09/30/21 12:26 Interval history: Ms. Garcia is a 50-year-old female who presented to the emergency room with complaints of increasing erythema, swelling, and pain to her right lower extremity. Pt admitted with cellulitis of her r lower ext Review of Systems Review of Systems: All systems reviewed & are unremarkable except as noted in HPI and below Exam Narrative: Constitutional: Patient is well-nourished in no acute distress. Lungs: clear lungs Cardiovascular: Apical pulse is regular rate and rhythm. S1-S2 noted, no S3 or S4 noted. No gallops, murmurs, or rubs noted. Abdomen: Soft, round, and nontender. No palpable masses. Extremities: Patient erythema of lower half of right lower extremity, both feet with Athletes foot. Psychiatric: Cooperative, appropriate mood, and affect Objective Data Vital Signs Vital Signs: Vital Signs - 24 hr 09/29/21 15:18 09/29/21 20:18 09/29/21 20:21 Temperature 36.7 C Pulse Rate 108 H 103 H 103 H Respiratory Rate 18 18 Blood Pressure 124/65 Pulse Oximetry 100 99 09/29/21 20:31 09/29/21 22:00 09/30/21 06:00 Temperature 36.3 C L 36.0 C L Pulse Rate 92 116 H 114 H Respiratory Rate 18 18 21 H Blood Pressure 137/79 121/54 L Pulse Oximetry 99 95 09/30/21 09:00 09/30/21 09:07 Temperature Pulse Rate 90 Respiratory Rate 18 Blood Pressure Pulse Oximetry 99 Intake/Output Intake/Output: Intake & Output 09/27/21 09/28/21 09/29/21 09/30/21 23:59 23:59 23:59 23:59 Intake Total 550 2110 670 Output Total 1550 1000 Balance 550 560 -330 Meds/Results Medications: Active Medications Generic Name Dose Route Start Last Admin Trade Name Freq PRN Reason Stop Dose Admin Albuterol 2.5 mg 09/29/21 08:00 09/30/21 09:18 Albuterol Sulfate Neb 2.5 Mg/3 Ml Inh INHALATION 2.5 mg Q12HRT MATI Administration Alprazolam 1 mg 09/29/21 09:00 09/30/21 08:35 Alprazolam (*Crx) 0.5 Mg Tablet PO 1 mg TID MATI Administration Benzonatate 200 mg 09/28/21 20:46 09/30/21 08:37 Benzonatate 100 Mg Capsule PO 200 mg TID PRN Administration Cough Cyclobenzaprine HCl 10 mg 09/28/21 20:35 09/29/21 21:13 Cyclobenzaprine Hcl 10 Mg Tablet PO 10 mg TID PRN Administration Spasms Dextrose 12.5 gm 09/28/21 17:22 Dextrose 50% 25 Gm/50 Ml Syringe IV PUSH PRN PRN Hypoglycemia Protocol Enoxaparin Sodium 40 mg 09/29/21 09:00 09/30/21 08:32 Enoxaparin 40 Mg/0.4 Ml Syringe SUB-Q 40 mg DAILY MATI Administration Ergocalciferol 50,000 unit 10/05/21 09:00 Ergocalciferol 50,000 Unit Capsule PO Mo@0900 MATI Gabapentin 900 mg 09/29/21 09:00 09/30/21 08:36 Gabapentin 300 Mg Capsule PO 900 mg TID MATI Administration Glucagon 1 mg 09/28/21 17:22 Glucagon For Inj 1 Mg Vial IM PRN PRN Hypoglycemia Protocol Glucose 15 gm 09/28/21 17:22 Glucose Oral Gel 15 Gm Of Glucse In 37.5 Gm Tube PO PRN PRN Hypoglycemia Protocol Dextrose 1,000 mls @ 100 mls/hr 09/28/21 17:22 Dextrose 5% 1,000 Ml IVPB PRN PRN Hypoglycemia Protocol Cefepime HC
[2021-09-30 17:03] LABS: Glucose Point of Care 137 mg/dl (65-105)
[2021-09-30] MEDS: POTASSIUM CHLORIDE 20 MEQ PACKET (FOR LIQUID) PO (17:14)
[2021-09-30] MEDS: CYCLOBENZAPRINE HCL 10 MG TABLET PO (21:29)
[2021-09-30] MEDS: ZOLPIDEM TARTRATE (*CRX) 5 MG TABLET PO (21:29)
[2021-09-30 22:04] LABS: Glucose Point of Care 165 mg/dl (65-105)
[2021-10-01] VITALS (10 sets, daily range): BP systolic 127–134; BP diastolic 65–73; PULSE 91–113; RESP 18–26; TEMP 36.9–37.1; O2SAT 93–100
[2021-10-01 05:58] LABS: Alanine Aminotransferase 26 U/L (6-35); Albumin Level 2.4 g/dL (3.5-5.1); Alkaline Phosphatase 73 U/L (38-126); Anion Gap 2 mmol/L (8-16); Aspartate Amino Transferase 55 U/L (14-36); Bilirubin,Total 1.1 mg/dL (0.2-1.3); Blood Urea Nitrogen 3 mg/dL (7-17); Calcium 7.7 mg/dL (8.4-10.2); Carbon Dioxide 28 mmol/L (22-30); Chloride 105 mmol/L (98-107); Estimated CRCL calculation 128 ml/min; Estimated Glomerular Filt Rate > 60; Glucose 156 mg/dL (65-110); Magnesium 1.5 mg/dL (1.6-2.3); Potassium 3.5 mmol/L (3.4-5.0); Sodium 135 mmol/L (137-145)
[2021-10-01 07:26] LABS: Glucose Point of Care 136 mg/dl (65-105)
[2021-10-01] MEDS: GABAPENTIN 300 MG CAPSULE 900 MG PO ×3 (08:34→18:07)
[2021-10-01] MEDS: PANTOPRAZOLE 40 MG TABLET PO ×2 (08:34→18:09)
[2021-10-01] MEDS: ALPRAZolam (*CRX) 0.5 MG TABLET 1 MG PO ×3 (08:34→18:14)
[2021-10-01] MEDS: MAGNESIUM OXIDE 400 MG TABLET PO (08:34)
[2021-10-01] MEDS: NYSTATIN OINTMENT 15 GM TUBE 1 APPLIC TOPICAL ×2 (08:35→21:20)
[2021-10-01] MEDS: MONTELUKAST SODIUM 10 MG TABLET PO (08:35)
[2021-10-01] MEDS: LORATADINE 10 MG TABLET PO (08:35)
[2021-10-01] MEDS: ENOXAPARIN 40 MG/0.4 ML SYRINGE SUB-Q (08:35)
[2021-10-01] MEDS: FLUTICASONE/SALMETEROL 45-21 MCG INHALER 1 PUFF 2 PUFF INHALATION ×3 (09:30→20:03)
[2021-10-01] MEDS: ALBUTEROL SULFATE NEB 2.5 MG/3 ML INH INHALATION ×2 (09:30→20:03)
[2021-10-01] MEDS: IPRATROPIUM BR 0.02% INH SOLN 0.5 MG/2.5 ML VIAL INHALATION ×2 (09:30→20:03)
[2021-10-01] MEDS: UMECLIDINIUM/VILANTEROL 62.5-25 MCG ELLIPTA 1 PUFF INHALATION (09:31)
[2021-10-01] MEDS: POTASSIUM CHLORIDE 20 MEQ PACKET (FOR LIQUID) PO ×2 (10:02→18:09)
[2021-10-01 11:32] LABS: Glucose Point of Care 145 mg/dl (65-105)
[2021-10-01] MEDS: traMADol HCL (*CRX) 50 MG TABLET PO ×2 (12:56→21:25)
[2021-10-01 14:17] LABS: Hemoglobin A1C 6.7 % (<5.7)
--- NOTE | 2021-10-01 16:37 | PM.IMPN ---
Progress Note: A&P Assessment and Plan (1) Cellulitis: Qualifiers: Laterality: right Site of cellulitis: extremity Site of cellulitis of extremity: lower extremity Qualified Code(s): L03.115 - Cellulitis of right lower limb Code(s): L03.90 - Cellulitis, unspecified Status: Acute Assessment and Plan: Patient completed 3 days of vancomycin cefepime, will switch to doxycycline and Keflex and anticipate discharge home tomorrow (2) Diabetes: Code(s): E11.9 - Type 2 diabetes mellitus without complications Status: Inactive Assessment and Plan: Accu-Cheks plus sliding scale insulin, A1c 6.7, point of care glucose ranging from 145-160 (3) Hypertension: Code(s): I10 - Essential (primary) hypertension Status: Acute Assessment and Plan: Controlled, blood pressure ranging from 120-134 over 54-71 (4) Tinea pedis of both feet: Code(s): B35.3 - Tinea pedis Status: Acute Assessment and Plan: Fairly severe, refer to podiatry of discharge, continue nystatin while in-house (5) Degenerative arthritis of knee, bilateral: Code(s): M17.0 - Bilateral primary osteoarthritis of knee Status: Acute Assessment and Plan: Follow-up outpatient with primary care physician and Orthopedic surgery Subjective Date/time seen: 10/01/21 16:37 Interval history: Ms. Garcia is a 50-year-old female who presented to the emergency room with complaints of increasing erythema, swelling, and pain to her right lower extremity, thought to be cellulitis, started on vancomycin cefepime September 28. No events noted overnight, patient states her symptoms are much improved. No fevers or chills. No chest pain or shortness of breath. Review of Systems Review of Systems: All systems reviewed & are unremarkable except as noted in HPI and below Exam Const: General: no acute distress HENMT: Mouth: Yes moist mucous membranes Eyes: General: appearance normal, both eyes and all related structures Neck: Neck: no JVD Resp: Auscultation: clear to auscultation bilaterally Cardio: Rate: regular rate Rhythm: regular rhythm GI: Inspection: non-distended GI Palp: Yes Soft to palpation and No Tenderness to palpation present (GI) Skin: Other: Erythema significantly improved, no warmth or tenderness noted Psych: Mental Status: mental status grossly normal Objective Data Vital Signs Vital Signs: Vital Signs - 24 hr 09/30/21 21:50 09/30/21 21:53 09/30/21 22:00 Temperature 98.6 F Pulse Rate 98 106 H Respiratory Rate 23 H 20 Blood Pressure 128/60 Pulse Oximetry 97 100 09/30/21 22:01 10/01/21 06:00 10/01/21 09:25 Temperature 98.6 F Pulse Rate 102 H 110 H 93 Respiratory Rate 20 18 20 Blood Pressure 127/73 Pulse Oximetry 100 10/01/21 09:31 10/01/21 09:32 10/01/21 14:00 Temperature 98.8 F Pulse Rate 91 109 H Respiratory Rate 20 18 Blood Pressure 134/71 Pulse Oximetry 97 97 Intake/Output Intake/Output: Intake & Output 09/28/21 09/29/21 09/30/21 10/01/21 23:59 23:59 23:59 23:59 Intake Total 550 2110 1700 1930 Output Total 1550 1000 Balance 550 247 572 3807 Meds/Results Medications: Active Medications Generic Name Dose Route Start Last Admin Trade Name Freq PRN Reason Stop Dose Admin Albuterol 2.5 mg 09/29/21 08:00 10/01/21 09:30 Albuterol Sulfate Neb 2.5 Mg/3 Ml Inh INHALATION 2.5 mg Q12HRT MATI Administration Alprazolam 1 mg 09/29/21 09:00 10/01/21 12:56 Alprazolam (*Crx) 0.5 Mg Tablet PO 1 mg TID MATI Administration Benzonatate 200 mg 09/28/21 20:46 09/30/21 15:24 Benzonatate 100 Mg Capsule PO 200 mg TID PRN Administration Cough Cephalexin HCl 500 mg 10/01/21 21:00 Cephalexin 500 Mg Capsule PO Q12HR MATI Cyclobenzaprine HCl 10 mg 09/28/21 20:35 09/30/21 21:29 Cyclobenzaprine Hcl 10 Mg Tablet PO 10 mg TID PRN Administration Spasms Dextrose
[2021-10-01 16:53] LABS: Glucose Point of Care 147 mg/dl (65-105)
[2021-10-01] MEDS: CYCLOBENZAPRINE HCL 10 MG TABLET PO (18:06)
[2021-10-01 20:09] LABS: Glucose Point of Care 142 mg/dl (65-105)
[2021-10-01] MEDS: DOXYCYCLINE HYCLATE 100 MG TABLET PO (21:19)
[2021-10-01] MEDS: CEPHALEXIN 500 MG CAPSULE PO (21:19)
[2021-10-02 06:00] VITALS: BP 138/74; PULSE 110; RESP 22; TEMP 36.6; O2SAT 94
[2021-10-02 07:47] LABS: Magnesium 1.6 mg/dL (1.6-2.3)
[2021-10-02 08:07] LABS: Glucose Point of Care 97 mg/dl (65-105)
[2021-10-02] MEDS: FLUTICASONE/SALMETEROL 45-21 MCG INHALER 1 PUFF 2 PUFF INHALATION (08:43)
[2021-10-02] MEDS: UMECLIDINIUM/VILANTEROL 62.5-25 MCG ELLIPTA 1 PUFF INHALATION (08:43)
[2021-10-02 08:44] VITALS: PULSE 111; RESP 14
[2021-10-02] MEDS: ENOXAPARIN 40 MG/0.4 ML SYRINGE SUB-Q (09:44)
[2021-10-02] MEDS: traMADol HCL (*CRX) 50 MG TABLET PO (09:44)
[2021-10-02] MEDS: PANTOPRAZOLE 40 MG TABLET PO (09:44)
[2021-10-02] MEDS: POTASSIUM CHLORIDE 20 MEQ PACKET (FOR LIQUID) PO (09:44)
[2021-10-02] MEDS: ALPRAZolam (*CRX) 0.5 MG TABLET 1 MG PO ×2 (09:45→12:19)
[2021-10-02] MEDS: GABAPENTIN 300 MG CAPSULE 900 MG PO ×2 (09:45→12:19)
[2021-10-02] MEDS: CEPHALEXIN 500 MG CAPSULE PO (09:45)
[2021-10-02] MEDS: MONTELUKAST SODIUM 10 MG TABLET PO (09:45)
[2021-10-02] MEDS: LORATADINE 10 MG TABLET PO (09:45)
[2021-10-02] MEDS: DOXYCYCLINE HYCLATE 100 MG TABLET PO (09:45)
[2021-10-02] MEDS: NYSTATIN OINTMENT 15 GM TUBE 1 APPLIC TOPICAL (09:45)
[2021-10-02 11:53] LABS: Glucose Point of Care 121 mg/dl (65-105)
--- NOTE | 2021-10-02 13:00 | PCPTNOTE ---
Attempted to see patient for Physical Therapy this morning, however patient's lunch came.
--- NOTE | 2021-10-02 15:53 | PM.DS ---
DS: Admitting Diagnosis Discharge Date 10/02/21 Admitting Diagnosis Cellulitis DS: Discharge Diagnosis Discharge Diagnosis (1) Cellulitis: Qualifiers: Laterality: right Site of cellulitis: extremity Site of cellulitis of extremity: lower extremity Qualified Code(s): L03.115 - Cellulitis of right lower limb Code(s): L03.90 - Cellulitis, unspecified Status: Acute Assessment and Plan: Patient completed 3 days of vancomycin cefepime, will switch to doxycycline and Keflex and anticipate discharge home tomorrow (2) Diabetes: Code(s): E11.9 - Type 2 diabetes mellitus without complications Status: Inactive Assessment and Plan: Accu-Cheks plus sliding scale insulin, A1c 6.7, point of care glucose ranging from 145-160 (3) Hypertension: Code(s): I10 - Essential (primary) hypertension Status: Acute Assessment and Plan: Controlled, blood pressure ranging from 120-134 over 54-71 (4) Tinea pedis of both feet: Code(s): B35.3 - Tinea pedis Status: Acute Assessment and Plan: Fairly severe, refer to podiatry of discharge, continue nystatin while in-house (5) Degenerative arthritis of knee, bilateral: Code(s): M17.0 - Bilateral primary osteoarthritis of knee Status: Acute Assessment and Plan: Follow-up outpatient with primary care physician and Orthopedic surgery DS: Summary Hospital Course Reason for hospitalization: Cellulitis Hospital Course: 50-year-old female past medical history significant for COPD, diabetes, obesity hypertension is presenting with a 2 week history of progressively worsening redness, swelling and pain to her right lower extremity. She states she recently took Keflex for about a week without any change to her symptoms. She denies any fevers or chills. No nausea vomiting diarrhea. No chest pain or shortness of breath. She was admitted to the hospital for IV antibiotics and supportive care. She completed 3 days of IV vancomycin and cefepime was switched to doxycycline and Keflex to complete a 10 day course of antibiotics. All symptoms resolved relatively quickly. Blood cultures were negative. She was discharged in good condition with close outpatient follow-up. Status at Discharge Functional status at discharge: independent ambulation Overall status at discharge: patient is back to baseline Time Spent with Patient Time attestation: Total time spent providing and/or coordinating discharge services: Greater than 30 minutes Time spent: Greater than 30 minutes Exam Const: General: no acute distress HENMT: Mouth: Yes moist mucous membranes Eyes: General: appearance normal, both eyes and all related structures Neck: Neck: no JVD Resp: Auscultation: clear to auscultation bilaterally Cardio: Rate: regular rate Rhythm: regular rhythm GI: Inspection: non-distended Skin: Other: Erythema significantly improved, no warmth or tenderness noted Psych: Mental Status: mental status grossly normal DS: Data Data Completed and Pending Labs on day of discharge: Labs from last 24 hours 10/02/21 10/02/21 10/01/21 11:48 08:04 20:05 POC Capillary Glucose 121 H 97 142 H Magnesium 10/01/21 10/01/21 16:39 05:28 POC Capillary Glucose 147 H Magnesium 1.6 Preliminary micro results at discharge 09/28/21 14:32 Blood Culture - Preliminary Blood 09/28/21 15:13 Blood Culture - Preliminary Blood Discharge Plan Discharge Attending physician on discharge: Nitza Encarnacion Consulting providers: Aida Stubbs Discharging Clinician: Nitza Encarnacion Anticipated Discharge Date/Time: 10/02/21 11:59 Patient Disposition: Home, Self-Care Activity: as tolerated Diet: as tolerated Patient Instructions: Antibiotic Form, How to Stop Smoking (DC), Suicide Prevention (DC) Stand Alone Forms: General Discharge Information Follow-up/Referrals: Bony La
== END 2021-10-02 13:40 | disposition home or self-care (01) | DRG 383 ==
LOC: ANHED 14:01 → ANH3MED 17:28
PROVIDERS: Family Medicine; Nurse Practitioner Adult Health; Physician Assistant; Admitting Provider Hospitalist; Emergency Provider Emergency Medicine; PCP Family Medicine; Visit Provider Student in an Organized Health Care Education/Training Program
DX: L03.115 Cellulitis of right lower limb (principal); E11.9 Type 2 diabetes mellitus without complications; I10 Essential (primary) hypertension; B35.3 Tinea pedis; M17.0 Bilateral primary osteoarthritis of knee; J44.9 Chronic obstructive pulmonary disease, unspecified; E66.01 Morbid (severe) obesity due to excess calories; Z68.41 Body mass index [BMI] 40.0-44.9, adult; F17.210 Nicotine dependence, cigarettes, uncomplicated; Z79.84 Long term (current) use of oral hypoglycemic drugs
CPT/HCPCS: 36415; 71046; 80048; 80053; 80202; 82948; 83036; 83605; 83735; 83880; 84484; 85025; 87040; 93005; 93971; 94640; 96365; 96366; 96367; 96372; 97161; 97166; 99285; A9270; G0378; G0379; J0692; J1650; J3370

== ENCOUNTER 2022-09-18 10:30 | Emergency (ER) | payer MEDICARE, SELFPAY ==
--- NOTE | ~2022-09-18 | XR_ITS ---
EXAMINATION: XR knee LT 3V DATE: 09/18/2022 11:19 INDICATION: Left knee pain TECHNIQUE: Three views of the left knee were obtained. COMPARISON: None. FINDINGS: Alignment is normal. No fracture or osteochondral lesion. There is mild tricompartmental os teoarthritis characterized by tiny marginal osteophytes. No joint effusion/synovitis. Soft tissues a re unremarkable. IMPRESSION: 1. No acute osseous abnormality. Reviewed, dictated and finalized at location A.
--- NOTE | ~2022-09-18 | XR_ITS ---
EXAMINATION: XR knee RT 3V DATE: 09/18/2022 11:19 INDICATION: Right knee pain TECHNIQUE: Three views of the right knee were obtained. COMPARISON: None. FINDINGS: Alignment is normal. No fracture or osteochondral lesion. There is mild tricompartmental os teoarthritis characterized by tiny marginal osteophytes. No joint effusion/synovitis. There is mild soft tissue swelling of the knee. IMPRESSION: 1. No acute osseous abnormality. Reviewed, dictated and finalized at location A.
--- NOTE | ~2022-09-18 | XR_ITS ---
EXAMINATION: XR femur LT min 2V INDICATION: Left leg pain TECHNIQUE: Two views of the left. There are obtained on four radiographs. COMPARISON: None available FINDINGS: Bone alignment is normal. There is no fracture. 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 Ph leboliths are noted in the pelvis. IMPRESSION: 1. No acute osseous abnormality. Reviewed, dictated and finalized at location A.
--- NOTE | ~2022-09-18 | XR_ITS ---
EXAMINATION: XR femur RT min 2V INDICATION: Right leg pain TECHNIQUE: Two views of the right femur are obtained on four radiographs COMPARISON: None available FINDINGS: Bone alignment is normal. There is no fracture. Phleboliths are noted in the pelvis. IMPRESSION: 1. No acute osseous abnormality. Reviewed, dictated and finalized at location A.
--- NOTE | ~2022-09-18 | XR_ITS ---
EXAMINATION: XR foot LT min 3V DATE: 09/18/2022 11:19 INDICATION: Left foot pain TECHNIQUE: Dorsoplantar, lateral, and 2 oblique views of the left foot were obtained. COMPARISON: None. FINDINGS: Bone alignment is normal. There are questionable fractures at the bases of the third and fo urth metatarsals. There is mild osteoarthritis at the first metatarsophalangeal joint and multiple in terphalangeal joints. The soft tissues are unremarkable. IMPRESSION: 1. Possible fractures involving the bases of the third and fourth metatarsals. Reviewed, dictated and finalized at location A.
[2022-09-18 10:30] VITALS: BP 134/97; PULSE 100; RESP 18; TEMP 36.6; O2SAT 97
--- NOTE | 2022-09-18 10:58 | ED.FALL ---
HPI - Fall General Chief Complaint: Fall Stated Complaint: fall Time Seen by Provider: 09/18/22 10:36 History of Present Illness HPI Narrative: 51-year-old female presented to the emergency department for evaluation of bilateral leg pain after having a ground-level fall onto her knees. Patient reports it was a mechanical fall. Patient denies striking head denies loss of consciousness. Patient states she has bilateral thigh knee pain. Patient also reports left foot pain. Patient has no abrasions edema or ecchymosis. Related Data Home Medications Medication Instructions Recorded Confirmed alprazolam 1 mg tablet 1 mg PO TID 11/05/20 09/28/21 budesonide-formoterol HFA 80 2 puff inhalation BID 11/05/20 09/28/21 mcg-4.5 mcg/actuation aerosol inhaler (Symbicort) clotrimazole 1 % topical cream 1 applic topical BID 11/05/20 09/28/21 cyclobenzaprine 10 mg tablet 10 mg PO TID PRN Spasms 11/05/20 09/28/21 ergocalciferol (vitamin D2) 1,250 50,000 unit PO WEEKLY 11/05/20 09/28/21 mcg (50,000 unit) capsule gabapentin 300 mg capsule 300 mg PO TID 11/05/20 09/28/21 gabapentin 600 mg tablet 600 mg PO TID 11/05/20 09/28/21 ipratropium 0.5 mg-albuterol 3 mg 3 ml inhalation BID 11/05/20 09/28/21 (2.5 mg base)/3 mL nebulization soln metformin 500 mg tablet 1,000 mg PO BID 11/05/20 09/28/21 pantoprazole 40 mg tablet,delayed 40 mg PO BID 11/05/20 09/28/21 release sumatriptan succinate 100 mg tablet 100 mg PO PRN PRN Migraine Headache 11/05/20 09/28/21 tiotropium 2.5 mcg-olodaterol 2.5 2 puff inhalation BID 11/05/20 09/28/21 mcg/actuation mist for inhalation (Stiolto Respimat) tramadol 50 mg tablet 50 mg PO Q6H PRN Pain 11/05/20 09/28/21 zolpidem 5 mg tablet 5 mg PO HS PRN Insomnia 11/05/20 09/28/21 benzonatate 200 mg capsule 200 mg PO TID PRN Cough 02/10/21 09/28/21 sitagliptin phosphate 100 mg 100 mg PO DAILY 02/10/21 09/28/21 tablet (Januvia) loratadine 10 mg tablet 10 mg PO DAILY 09/28/21 09/28/21 montelukast 10 mg tablet 10 mg PO DAILY 09/28/21 09/28/21 Allergies Allergy/AdvReac Type Severity Reaction Status Date / Time No Known Allergies Allergy Verified 09/28/21 17:17 Review of Systems Review of Systems: All systems reviewed & are unremarkable except as noted in HPI and below PMFSH Past Medical History Medical History (Updated 09/18/22 @ 12:32 by Siddhartha Tesfaye MD) Chronic pain COPD (chronic obstructive pulmonary disease) Diabetes Hypertension Morbid obesity Social History Social History Smoking packs per day: 1 Smoking cigarettes per day: 20.0 Years smoked: 20 Smoking pack-years: 20.00 Smoking status: Current every day smoker Tobacco type: cigarettes Additional smoking assessment comments: SMOKES 3 CIGS A DAY NOW Alcohol intake: never Substance use: never Substance use type: does not use Living arrangements: with family Spiritual care concerns: No Exam Narrative: APPEARANCE: Well appearing, no pain, no distress, well-nourished. HEAD: normocephalic, atraumatic. EYES: PERRLA/EOMI, conjunctivae clear. NOSE: Normal no drainage NECK: Supple. No adenopathy, no masses. RESPIRATORY: Airway patent, respirations nonlabored. Clear to auscultation bilaterally, no rales, rhonchi, wheezing. CARDIOVASCULAR: Regular rate and rhythm without murmurs rubs or gallops. ABDOMINAL: Soft, nontender, nondistended, normal bowel sounds MUSCULOSKELETAL: Moves all extremities. Tender to light palpation at bilateral knees thighs and left foot NEURO: Alert. Cranial nerves II through XII intact. Good gait. Good coordination SKIN: Warm, dry. Normal Color Course Course Emergency Course: 51-year-old female presented the ED for evaluation of pain after ground-level fall. X-rays were ordered to evaluate for acute fracture or dislocations for femurs knees and left foot. Patient family were updated on the plan for imaging. X-rays of bilat
[2022-09-18 12:35] VITALS: BP 148/74; PULSE 94; RESP 22; O2SAT 100
[2022-09-18 13:01] VITALS: BP 112/64; PULSE 95; RESP 20; O2SAT 100
== END 2022-09-18 13:04 | disposition home or self-care (01) ==
PROVIDERS: Emergency Provider Emergency Medicine; PCP Family Medicine
DX: S92.332A Displaced fracture of third metatarsal bone, left foot, initial encounter for closed fracture (principal); S92.342A Displaced fracture of fourth metatarsal bone, left foot, initial encounter for closed fracture; S89.92XA Unspecified injury of left lower leg, initial encounter; S89.91XA Unspecified injury of right lower leg, initial encounter; E11.9 Type 2 diabetes mellitus without complications; I10 Essential (primary) hypertension; J44.9 Chronic obstructive pulmonary disease, unspecified; E66.01 Morbid (severe) obesity due to excess calories; Z68.41 Body mass index [BMI] 40.0-44.9, adult; Z79.84 Long term (current) use of oral hypoglycemic drugs; F17.210 Nicotine dependence, cigarettes, uncomplicated; W19.XXXA Unspecified fall, initial encounter
CPT/HCPCS: 29515; 73552; 73562; 73630; 99284